=== PATIENT | male | born 1985 | race Caucasian/White ===

== ENCOUNTER → 2018-11-22 | Outpatient (CLI) | payer SELFPAY ==
[2018-11-22 14:53] VITALS: BMI 25.5
--- NOTE | 2018-11-22 15:13 | RAD_ITS ---
STUDY: X-RAY - RIGHT ANKLE REASON FOR EXAM: Male, 33 years old. Pain following a recent fall. TECHNIQUE: 3 view(s) of the ankle. COMPARISON: None. FINDINGS: Normal visualized distal tibia and fibula. Normal medial and lateral malleoli. Normal tibiotalar articulation and ankle mortise. Normal visualized talus and calcaneus. The visualized subtalar, talonavicular, calcaneocuboid and tarsal articulations are normal. The soft tissue structures are unremarkable. RAD/Ankle min 3 Views IMPRESSION: Normal x-ray examination of the ankle. Electronically Signed: Vaughn Boyce, at 15:32 EDT , Service support ,
== END | disposition home or self-care (01) ==
LOC: HPRAD 15:11
PROVIDERS: Referring Provider Physician Assistant Surgical; Visit Provider Physician Assistant Surgical
DX: S93.401A Sprain of unspecified ligament of right ankle, initial encounter (principal)
CPT/HCPCS: 73610

== ENCOUNTER → 2025-02-07 | Outpatient (CLI) | payer SELFPAY ==
--- NOTE | 2025-02-07 15:47 | MRI_ITS ---
PROCEDURE: UPPER EXT JOINT ONLY(ROUTINE) 02/07/2025 REASON FOR EXAM: SHOULDER SPRAIN TECHNIQUE: Procedure Code: [id number] Modality: MR Procedure: UPPER EXT JOINT ONLY(ROUTINE) Multiplanar and multisequence images were obtained without IV contrast administration. COMPARISON: none FINDINGS: The supraspinatus tendon shows intrasubstance high signal with total fibers interruption forming a 14 mm width gap. Thickening and intrasubstance high signal of the subscapularis tendon with partial fibers interruption suggesting partial thickness tear. Intrasubstance high signal of the infraspinatus tendon suggesting tendinosis with no evidence of complete fibers interruption. The teres minor tendon appears intact. Intact long head of biceps tendon. No obvious glenoid labral tears. 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 Intact glenohumeral joint. Mild glenohumeral joint effusion Fluid signal distending the subcoracoid and subacromial/subdeltoid bursa. A low signal focus seen along the medial aspect of the proximal humeral shaft. No marrow infiltrative lesions. The neurovascular bundles appear unremarkable. 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 Supraspinatus tendonitis with full thickness tear. Subscapularis tendonitis with partial thickness tear. Infraspinatus tendonitis. Mild glenohumeral joint effusion & subacromial/subdeltoid bursitis. Reading Location: [place] [id number]
--- NOTE | 2025-02-07 15:47 | MRI_ITS ---
PROCEDURE: UPPER EXT JOINT ONLY(ROUTINE) 02/07/2025 REASON FOR EXAM: SHOULDER SPRAIN TECHNIQUE: Procedure Code: [id number] Modality: MR Procedure: UPPER EXT JOINT ONLY(ROUTINE) Multiplanar and multisequence images were obtained without IV contrast administration. COMPARISON: none FINDINGS: The supraspinatus tendon shows intrasubstance high signal with total fibers interruption forming a 14 mm width gap. Thickening and intrasubstance high signal of the subscapularis tendon with partial fibers interruption suggesting partial thickness tear. Intrasubstance high signal of the infraspinatus tendon suggesting tendinosis with no evidence of complete fibers interruption. The teres minor tendon appears intact. Intact long head of biceps tendon. No obvious glenoid labral tears. 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 Intact glenohumeral joint. Mild glenohumeral joint effusion Fluid signal distending the subcoracoid and subacromial/subdeltoid bursa. A low signal focus seen along the medial aspect of the proximal humeral shaft. No marrow infiltrative lesions. The neurovascular bundles appear unremarkable. 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 Supraspinatus tendonitis with full thickness tear. Subscapularis tendonitis with partial thickness tear. Infraspinatus tendonitis. Mild glenohumeral joint effusion & subacromial/subdeltoid bursitis. Reading Location: [place] [id number]
== END | disposition home or self-care (01) ==
PROVIDERS: Referring Provider Orthopaedic Surgery; Visit Provider Orthopaedic Surgery
DX: S43.492A Other sprain of left shoulder joint, initial encounter (principal); M25.512 Pain in left shoulder
CPT/HCPCS: 73221